=== PATIENT | female | born 2000 | race Caucasian/White ===

== ENCOUNTER 2020-07-09 23:19 | Emergency (ER) | payer SELFPAY ==
[2020-07-09 23:25] VITALS: BP 144/89; PULSE 112; RESP 16; TEMP 36.6; O2SAT 97; BMI 25.3
--- NOTE | 2020-07-09 23:26 | W.ED.SKABFB ---
HPI - Skin/Abscess/Foreign Bdy General: Chief complaint: Skin/Abscess/Foreign Body Stated complaint: rash Time Seen by Provider: 07/09/20 23:20 Source: patient Mode of arrival: ambulatory Limitations: no limitations History of Present Illness: HPI narrative: Patient is a 20-year-old female presents to ED today with complaint of poison fabiola rash last 2 to 3 days. Patient tells me she has had similar rashes several times previously. She reports known exposure to poison fabiola. She states usually she will get IM steroids which seems to help her symptoms. She has no other complaints at this time. complaint: rash Onset (ago): day(s) Tetanus up to date: yes Location: generalized Severity: moderate Quality: burning and pruritic Relieving factors: none Exacerbating factors: none Context: other (poison fabiola exposure) Associated symptoms: Reports no associated symptoms; Deny chills or fever(s) Review of Systems Const: Denies: fever(s) or chills ENMT: Denies: throat pain or odynophagia Card: Denies: chest pain Resp: Denies: dyspnea GI: Denies: abdominal pain Musc: Denies: neck pain, back pain, extremity pain, extremity swelling, joint pain or joint swelling Skin/Breast: Reports: rash Neuro: Denies: headache(s), numbness in extremities, weakness in extremities or sensory changes Physical Exam Const: COMMON NORMALS: no acute distress, average body habitus, patient oriented x3, no limitations, healthy appearing, alert and well nourished Neuro: COMMON NORMALS: patient oriented x3 SENSORIUM/ORIENTATION: Yes alert Skin: OTHER: pt has extensive erythematous edematous clusters throughout arms, torso, face, legs some of which with vesicular/weeping formations and linear streaks consistent with a plant dermatitis Course Vital Signs: Vital signs: Vital Signs Temperature 97.8 F 07/09/20 23:25 Pulse Rate 112 H 07/09/20 23:25 Respiratory Rate 16 07/09/20 23:25 Blood Pressure 144/89 07/09/20 23:25 Pulse Oximetry 97 07/09/20 23:25 Discharge Plan Discharge Patient Disposition: Home Clinical Impression: Irritant contact dermatitis due to plant Condition: Stable Discharge Orders: Discharge Order (Routine); Ordered 07/09/20 Ordered By: Radha Balderrama Patient Instructions: Poison Fabiola (ED), Poison [place], [place], and [place] - Adult Coding Level of Care Code ED Python Engineer for Candice Alvarez
[2020-07-09] MEDS: hydrocortisone 100 mg/2 mL SDV 75 MG IM (23:50)
[2020-07-09] MEDS: triamcinolone 40 mg/mL SDV IM (23:51)
== END 2020-07-09 23:55 | disposition home or self-care (01) ==
PROVIDERS: Emergency Provider Physician Assistant
DX: L24.7 Irritant contact dermatitis due to plants, except food (principal)
CPT/HCPCS: 12345; 96372; 99281; 99283; J1720; J3301

== ENCOUNTER 2023-07-03 17:33 | Emergency (ER) | payer OTHER, MEDICAID, SELFPAY ==
[2023-07-03 17:38] VITALS: BP 160/104; PULSE 105; RESP 16; TEMP 36.4; O2SAT 96; BMI 28.3
[2023-07-03 18:27] VITALS: BP 146/101; PULSE 93; RESP 16; O2SAT 96
--- NOTE | 2023-07-03 18:31 | W.ED.DENTAL ---
HPI - Dental/Oral General: Chief complaint: Dental/Oral Stated complaint: recent tooth pulled, severe pain right side Time Seen by Provider: 07/03/23 18:21 History of Present Illness: 23-year-old female comes in with right upper jaw pain. Patient had a dental extraction about 2 weeks ago and over the last 2 days she has had increased pain and tenderness to the right upper jaw. Patient appears nontoxic. Patient appears in moderate pain. Patient take 1 amoxicillin at home yesterday when the pain started. Associated symptoms: Reports ear or mastoid pain; Denies fever(s) Review of Systems Const: Denies: fever(s) ENMT: Reports: dental pain and ear or mastoid pain GI: Denies: nausea or vomiting Musc: Denies: neck pain or back pain Physical Exam Const: COMMON NORMALS: alert HENMT: COMMON NORMALS: atraumatic, TM's normal bilaterally and Normal external nose present HEAD & SCALP: atraumatic NOSE: Normal external nose present TYMPANIC MEMBRANE: TM's normal bilaterally MOUTH: Normal oral and palatal mucosa present TEETH & GINGIVA IMAGES: 1. Redness and swelling THROAT: posterior oropharynx normal Neck/C-Spine: COMMON NORMALS: full ROM Resp: COMMON NORMALS: normal respiratory effort and clear to auscultation bilaterally AUSCULTATION: clear to auscultation bilaterally Cardio: COMMON NORMALS: regular rate and regular rhythm RATE: regular rate RHYTHM: regular rhythm Extremity: COMMON NORMALS: normal to inspection Neuro: SENSORIUM/ORIENTATION: Yes alert Skin: COMMON NORMALS: turgor normal GENERAL SKIN EXAM: turgor normal Course Vital Signs: Vital signs: Vital Signs Temperature 97.5 F L 07/03/23 17:38 Pulse Rate 93 07/03/23 18:27 Respiratory Rate 16 07/03/23 18:27 Blood Pressure 146/101 07/03/23 18:27 Pulse Oximetry 96 07/03/23 18:27 Oxygen Delivery Me thod Room Air 07/03/23 18:27 MDM - Dental/Oral Medical Decision Making Patient comes in today with complaints of tenderness and pain to the right upper jaw. On exam patient has some erythema and swelling to the gingiva of the second molar. Third molar is missing. Well-healed dental extraction is noted. Differential diagnosis includes but not limited to periodontal disease, dry socket, dental abscess, otitis media. No signs of severe illness or injury is noted. Patient appears to have a dental abscess. Recommend antibiotics and follow-up with dentist for further evaluation. Patient was also given some ibuprofen and hydrocodone for pain relief. Patient stated understanding of care plan and need for follow-up or return to ER as needed. Discharge Plan Discharge Patient Disposition: Home Clinical Impression: Dental abscess Condition: Stable Prescriptions: New amoxicillin-pot clavulanate 875-125 mg tablet 1 tab PO BID Qty: 14 0RF hydrocodone-acetaminophen 5-325 mg tablet 1 tab PO Q8H PRN (Reason: pain (scale score 7-10)) Qty: 6 0RF ibuprofen 600 mg tablet 600 mg PO Q6H PRN (Reason: fever or pain) Qty: 20 0RF Discharge Orders: Discharge ED (Routine); Ordered 07/03/23 Ordered By: Galindo Talley Discharge Diet: Usual diet Discharge Activity: Increase activity as tolerated Patient Instructions: Dental Abscess (ED), Opioid Safety Activity Restrictions/Additional Instructions: Take antibiotic as directed. Drink plenty of water with medication. Use acetaminophen and/or ibuprofen to control pain. Use hydrocodone for severe pain. Use ice packs for further pain relief. Follow-up with dentist for further evaluation and treatment as needed. Coding Level of Care Code ED Supervisor Air Conditioning Installer for Candice Alvarez
[2023-07-03] MEDS: HYDROcodone-acetaminophen 7.5-325 mg Tablet 1 TAB PO (18:33)
[2023-07-03] MEDS: amoxicillin-clav 875-125 mg Tablet 1 TAB PO (18:33)
== END 2023-07-03 18:36 | disposition home or self-care (01) ==
PROVIDERS: Emergency Provider Nurse Practitioner Family
DX: K04.7 Periapical abscess without sinus (principal)
CPT/HCPCS: 99283

== ENCOUNTER 2023-09-27 00:02 | Emergency (ER) | payer MEDICAID, SELFPAY ==
[2023-09-27 00:03] VITALS: BP 160/120; PULSE 95; RESP 16; TEMP 36.4; O2SAT 100; BMI 27.7
[2023-09-27 00:54] VITALS: RESP 16; O2SAT 97
[2023-09-27 01:02] LABS: Basophils # 0.1 10^3/uL (0.0-0.1); Basophils % 0.8 %; Eosinophils # 0.9 10^3/uL (0.0-0.8); Eosinophils % 7.2 %; Hematocrit 44.1 % (36-47); Lymphocytes # 2.1 10^3/uL (0.8-4.8); Lymphocytes % 16.7 %; Mean Corpuscular HGB Conc 32.7 g/dL (30-55); Mean Corpuscular Hemoglobin 30.7 pg (27-33); Mean Platelet Volume 9.8 fL (7.4-10.4); Monocytes # 0.7 10^3/uL (0.2-0.9); Monocytes % 5.8 %; Neutrophils # 8.71 10^3/uL (1.8-7.7); Neutrophils % 69.2 %; Nucleated Red Blood Cells % 0 %; Platelet Count 260 10^3/cmm (157-399); Red Blood Count 4.69 10^6/uL (3.85-5.65); Red Cell Distribution Width 12.5 % (12.1-15.1); White Blood Count 12.58 10^3/uL (3.29-11.43)
[2023-09-27 01:21] LABS: HCG, Serum Qual Negative (Negative)
[2023-09-27 01:23] LABS: Add Urine Culture? No; Add Urine Microscopic? YES; Amorphous Sediment Urine 3+ /hpf; Bacteria Urine TRACE /hpf; Bilirubin Urine Neg (Negative); Blood Urine Neg (Negative); Glucose Urine UA Norm (Normal); Ketones Urine 1+ (Negative); Leukocyte Esterase Urine Trace (Negative); Nitrate Urine Negative (Negative); Protein Urine Neg (Negative); Specific Gravity, Urine 1.015 (1.005-1.030); Urine Appearance Hazy (CLEAR); Urine Color Yellow (Yellow); Urobilinogen Urine 1 mg/dL (Negative); WBC Urine 0-4 /hpf (0-5); pH Urine 7 (5-7)
[2023-09-27 01:30] LABS: Alanine Aminotransferase 22 U/L (0-33); Albumin Level 5.1 g/dL (3.5-5.2); Alkaline Phosphatase 65 U/L (35-105); Aspartate Amino Transferase 15 U/L (0-32); Blood Urea Nitrogen 13 mg/dL (6-20); Calcium 10.2 mg/dL (8.5-10.5); Carbon Dioxide 27 mmol/L (22-29); Chloride 101 mmol/L (98-107); Globulin 2.7 g/dL (1.3-4.6); Glomerular Filtration Rate 123.9 mL/min (90-130); Glucose 73 mg/dL (65-115); Lipase 23 U/L (13-60); Osmolality Calculated 285 mOsm/kg (285-295); Sodium 138 mmol/L (136-145); Total Bilirubin 0.2 mg/dL (0.15-1.2); Total Protein 7.8 g/dL (6.6-8.7)
[2023-09-27] MEDS: lidocaine 2% viscous 15 ML, aluminum-mag hydrox-simethicon 30 ML, sucralfate oral liq 1 GM PO (01:39)
[2023-09-27 01:49] LABS: Anion Gap 13.9 (5-19); Potassium 3.9 mmol/L (3.5-5.1)
--- NOTE | 2023-09-27 01:53 | ED_ITS ---
HPI - Abdominal Pain General: Chief Complaint: Abdominal Pain Stated Complaint: ABD Pain Time Seen by Provider: 09/27/23 01:26 Source: patient History of Present Illness: Healthy 23-year-old female. She presents with epigastric pain for the last 2 to 3 days. No vomiting. No fever. Minimal nausea. Pain has been consistent, but is now improved to some degree this evening. No blood in the stool. No history of abdominal surgery. MD elicited complaint: abdominal pain Associated Symptoms: Denies chills, diarrhea, fever(s), hematochezia, nausea and vomiting Related Data: Date of Last Menstrual Period: 08/16/23 Review of Systems Const: Denies: fever(s), chills or body aches Eyes: Denies: change in vision Card: Denies: chest pain or palpitations Resp: Denies: dyspnea, productive cough, non-productive cough or wheezing GI: Reports: abdominal pain; Denies: nausea, vomiting, diarrhea or hematochezia : Denies: difficulty voiding Skin/Breast: Denies: rash Neuro: Denies: headache(s), weakness in extremities, dizziness or confusion [facility] ED Female Reproductive History: Date of last menstrual period: 08/16/23 Physical Exam Const: COMMON NORMALS: no acute distress GENERAL APPEARANCE: cooperative; not ill appearing and not frail appearing HENMT: COMMON NORMALS: normocephalic, atraumatic and Normal external nose present HEAD & SCALP: normocephalic and atraumatic FACE & SINUS: normal facial exam and face symmetric NOSE: Normal external nose present Eye: COMMON NORMALS: Equal, round and reactive pupils present and EOMs intact bilaterally PUPIL: Yes Equal, round and reactive pupils present Neck/C-Spine: GENERAL: Yes trachea midline Chest: CHEST: Yes Symmetrical chest wall rise Resp: COMMON NORMALS: normal respiratory effort, No retractions, No use of accessory muscles and clear to auscultation bilaterally AUSCULTATION: clear to auscultation bilaterally Cardio: COMMON NORMALS: regular rate and regular rhythm RATE: regular rate RHYTHM: regular rhythm GI: COMMON NORMALS: Normal to inspection, nondistended, normoactive bowel sounds present and Soft to palpation PALPATION: Yes Soft to palpation, No Tenderness to palpation present (GI) and No Guarding due to palpation present (GI) Extremity: COMMON NORMALS: no pedal edema Neuro: MANUEL COMA SCALE: document GCS findings [place] coma scale eye opening: Spontaneous Manuel coma scale verbal response: Orientated Manuel coma scale motor response: Obey commands [place] coma scale total score: 15 SENSORY EXAM: Yes extremities (intact) Psych: COMMON NORMALS: speech normal SPEECH: Yes normal speech Skin: COMMON NORMALS: no rashes or lesions noted GENERAL SKIN EXAM: no roldan hes or lesions noted Course Vital Signs: Vital signs: Vital Signs Temperature 97.5 F L 09/27/23 00:03 Pulse Rate 95 09/27/23 00:03 Respiratory Rate 16 09/27/23 00:54 Blood Pressure 160/120 09/27/23 00:03 Pulse Oximetry 97 09/27/23 00:54 Oxygen Delivery Me thod Room Air 09/27/23 00:54 MDM - Abdominal Pain Medical Decision Making The patient is essentially nontender now on exam. Blood pressure is significantly elevated. Other vitals are normal. White blood cell count is 12.6, with normal differential. Other laboratory including BMP, liver enzymes, CRP and lipase are all normal. Urinalysis is slightly contaminated, otherwise not clinically significant. Patient is given a GI cocktail without a significant difference, but pain had resolved essentially prior to administration. Suspect this is a gastritis given the distribution of her pain. Medical treatment, outpatient follow-up. Evidently, the patient may have eloped from the ER, with IV intact in her forearm. We are attempting to find the patient to administer correct discharge instructions, and discontinue her intravenous catheter. Lab Data 09/27/23 00:48 09/27/23 00:48 Labs/Radiology: Laboratory Results WBC 12.58 10^3/uL (3.29-11.43) H 09/27/23 00:48 RBC 4.69 10^6/uL (3.85-5.65) 09/27/23 00:48 Hgb 14.40 g/dL (11.27-16.99) 09/27/23 00:48 Hct 44.1 % (36-47) 09/27/23 00:48 MCV 94.0 fl (85-98) 09/27/23 00:48 MCH 30.7 pg (27-33) 09/27/23 00:48 MCHC 32.7 g/dL (30-55) 09/27/23 00:48 RDW 12.5 % (12.1-15.1) 09/27/23 00:48 Plt Count 260 10^3/cmm (157-399) 09/27/23 00:48 MPV 9.8 fL (7.4-10.4) 09/27/23 00:48 Neut % (Auto) 69.2 % 09/27/23 00:48 Lymph % (Auto) 16.7 % 09/27/23 00:48 [place] % (Auto) 5.8 % 09/27/23 00:48 Eos % (Auto) 7.2 % 09/27/23 00:48 Baso % (Auto) 0.8 % 09/27/23 00:48 Neut # (Auto) 8.71 10^3/uL (1.8-7.7) H 09/27/23 00:48 Lymph # (Auto) 2.1 10^3/uL (0.8-4.8) 09/27/23 00:48 [place] # (Auto) 0.7 10^3/uL (0.2-0.9) 09/27/23 00:48 Eos # (Auto) 0.9 10^3/uL (0.0-0.8) H 09/27/23 00:48 Baso # (Auto) 0.1 10^3/uL (0.0-0.1) 09/27/23 00:48 Nucleated RBC % (auto) 0 % 09/27/23 00:48 Nucleated RBCs # 0.0 /100WBC 09/27/23 00:48 Sodium 138 mmol/L (136-145) 09/27/23 00:48 Potassium 3.9 mmol/L (3.5-5.1) 09/27/23 00:48 Chloride 101 mmol/L (98-107) 09/27/23 00:48 Carbon Dioxide 27 mmol/L (22-29) 09/27/23 00:48 Anion Gap 13.9 (5-19) 09/27/23 00:48 BUN 13 mg/dL (6-20) 09/27/23 00:48 Creatinine 0.6 mg/dL (0.5-0.9) 09/27/23 00:48 GFR Calculation 123.9 mL/min (90-130) 09/27/23 00:48 Glucose 73 mg/dL (65-115) 09/27/23 00:48 Calculated Osmolality 285 mOsm/kg (285-295) 09/27/23 00:48 Calcium 10.2 mg/dL (8.5-10.5) 09/27/23 00:48 Total Bilirubin 0.2 mg/dL (0.15-1.2) 09/27/23 00:48 AST 15 U/L (0-32) 09/27/23 00:48 ALT 22 U/L (0-33) 09/27/23 00:48 Alkaline Phosphatase 65 U/L (35-105) 09/27/23 00:48 C-Reactive Protein 3.0 mg/L (0.0-4.9) 09/27/23 00:48 Total Protein 7.8 g/dL (6.6-8.7) 09/27/23 00:48 Albumin 5.1 g/dL (3.5-5.2) 09/27/23 00:48 Globulin 2.7 g/dL (1.3-4.6) 09/27/23 00:48 Lipase 23 U/L (13-60) 09/27/23 00:48 HCG, Qual Negative (Negative) 09/27/23 00:48 Urine Color Yellow (Yellow) 09/27/23 00:47 Urine Appearance Hazy (CLEAR) A 09/27/23 00:47 Urine pH 7 (5-7) 09/27/23 00:47 Ur Specific [place] 1.015 (1.005-1.030) 09/27/23 00:47 Urine Protein Neg (Negative) 09/27/23 00:47 Urine Glucose (UA) Norm (Normal) 09/27/23 00:47 Urine Ketones 1+ (Negative) H 09/27/23 00:47 Urine Blood Neg (Negative) 09/27/23 00:47 Urine Nitrate Negative (Negative) 09/27/23 00:47 Urine Bilirubin Neg (Negative) 09/27/23 00:47 Urine Urobilinogen 1 mg/dL (Negative) H 09/27/23 00:47 Ur Leukocyte Esterase Trace (Negative) H 09/27/23 00:47 Urine RBC None /hpf (0-2) 09/27/23 00:47 Urine WBC 0-4 /hpf (0-5) H 09/27/23 00:47 Ur Squamous Epith Cells 5-10 /hpf (0-5) H 09/27/23 00:47 Amorphous Sediment 3+ /hpf 09/27/23 00:47 Urine Bacteria Trace /hpf (NONE) 09/27/23 00:47 No radiology studies performed this visit Discharge Plan Discharge Patient Disposition: Home Clinical Impression: Gastritis Condition: Stable Prescriptions: New Prevacid 30 mg capsule,delayed release(DR/EC) 30 mg PO DAILY Qty: 30 0RF No Action amoxicillin-pot clavulanate 875-125 mg tablet 1 tab PO BID Qty: 14 0RF hydrocodone-acetaminophen 5-325 mg tablet 1 tab PO Q8H PRN (Reason: pain (scale score 7-10)) Qty: 6 0RF ibuprofen 600 mg tablet 600 mg PO Q6H PRN (Reason: fever or pain) Qty: 20 0RF Discharge Orders: Discharge ED (Routine); Ordered 09/27/23 Ordered By: Iraj Craig Patient Instructions: Gastritis (ED) Activity Restrictions/Additional Instructions: Your pain is most likely gastritis, which is an inflammation of the lining of the stomach. Medication prescribed will help this over time. Most of the time, a 3 to 4-week trial is required. Return for fever, worsening pain despite treatment, vomiting, blood in your stool, other concerning symptoms. See your doctor this week. Call for a follow-up appointment Coding Level of Care Code ED Adventure Guide for Candice Alvarez
--- NOTE | 2023-09-27 02:37 | PC.NURSE ---
HCSO reports that they were unable to make contact with the pt.
== END 2023-09-27 02:12 | disposition home or self-care (01) ==
PROVIDERS: Emergency Provider Emergency Medicine
DX: K29.70 Gastritis, unspecified, without bleeding (principal)
CPT/HCPCS: 80053; 81001; 83690; 84703; 85025; 86140; 99283

== ENCOUNTER → 2023-11-03 09:31 | Outpatient (BNVA) | payer MEDICAID, SELFPAY | PROVIDERS: Visit Provider Nurse Practitioner Family | DX: J06.9 Acute upper respiratory infection, unspecified (principal) | CPT/HCPCS: 87426 ==

== ENCOUNTER 2024-08-30 17:55 | Emergency (ER) | payer MEDICAID, SELFPAY ==
[2024-08-30 18:10] VITALS: BP 131/87; PULSE 97; RESP 16; TEMP 36.8; O2SAT 97
--- NOTE | 2024-08-30 18:34 | ED_ITS ---
HPI - Wound/Laceration General: Chief Complaint: Wound/Laceration Stated Complaint: left leg would Time Seen by Provider: 08/30/24 18:29 History of Present Illness: Patient presents to the ER with complaints of a large red area on her left calf. Is been going on for several days. She was just recently treated for a similar episode on her right calf. They thought it was a spider bite it is totally resolved. The new area is red painful swollen and warm no or streaking. Related Data Previous Rx's Medication Instructions Recorded triamcinolone acetonide 0.1 % 1 applic topical BID PRN itching 08/22/24 topical ointment #30 grams cephalexin 500 mg capsule 500 mg PO Q6H 7 days #28 caps 08/30/24 Allergies Allergy/AdvReac Type Severity Reaction Status Date / Time No Known Allergies Allergy Verified 08/30/24 18:13 Review of Systems General: Reports: 10 or more systems reviewed and unremarkable except in HPI and below PFSH ED PFSH: Medical History Psychiatric care Social History Smoking and tobacco/nicotine status: current every day tobacco/nicotine user Physical Exam Const: COMMON NORMALS: no acute distress, average body habitus, patient oriented x3, no limitations, healthy appearing, alert and well nourished HENMT: COMMON NORMALS: normocephalic, atraumatic, hearing grossly normal bilaterally, external ears normal, Normal external nose present and moist oral mucous membranes HEAD & SCALP: normocephalic and atraumatic NOSE: Normal external nose present EXTERNAL EAR: Yes external ears normal Neck/C-Spine: COMMON NORMALS: no JVD Chest: COMMONS NORMALS: normal inspection of the chest and normal palpation of entire chest wall Resp: COMMON NORMALS: normal respiratory effort, No retractions, No use of accessory muscles and clear to auscultation bilaterally AUSCULTATION: clear to auscultation bilaterally Cardio: COMMON NORMALS: no JVD, regular rate, regular rhythm, S1 normal heart sound present, S2 normal heart sound present, No gallops present (Cardio), No clicks present (Cardio), No murmurs present (Cardio) and No rub (Cardio) RATE: regular rate RHYTHM: regular rhythm HEART SOUNDS: S1 normal heart sound present and S2 normal heart sound present GI: COMMON NORMALS: Normal to inspection, nondistended, normoactive bowel sounds present, Soft to palpation, non-tender, No hepatosplenomegaly present and no masses PALPATION: Yes Soft to palpation and Yes No hepatosplenomegaly present Extremity: NARRATIVE EXTREMITY EXAM: Approximately 3 to 4 cm red erythematous area on the left medial calf no obvious fluctuance tender to palpate no obvious streaking Neuro: COMMON NORMALS: patient oriented x3 SENSORIUM/ORIENTATION: Yes alert Course Vital Signs: Vital signs: Vital Signs Temperature 98.3 F 08/30/24 18:10 Pulse Rate 97 08/30/24 18:10 Respiratory Rate 16 08/30/24 18:10 Blood Pressure 131/87 08/30/24 18:10 Pulse Oximetry 97 08/30/24 18:10 Oxygen Delivery Me thod Room Air 08/30/24 18:10 MDM - Wound/Laceration Medical Decision Making Appears patient has cellulitis, patient was given Keflex here in ER and will be discharged home with a prescription of Keflex. Medical Records I reviewed the patient's medical records. Lab Data I reviewed the patient's lab results. No radiology studies performed this visit Discharge Plan Discharge Patient Disposition: Home Clinical Impression: Cellulitis Qualifiers: Site of cellulitis: extremity Site of cellulitis of extremity: lower extremity Laterality: left Qualified Code(s): L03.116 - Cellulitis of left lower limb Condition: Stable Prescriptions: New cephalexin 500 mg capsule 500 mg PO Q6H 7 Days Qty: 28 0RF Discontinued sulfamethoxazole-trimethoprim [Bactrim DS] 800-160 mg tablet 1 tab PO BID 7 Days Qty: 14 0RF No Action triamcinolone acetonide 0.1 % ointment 1 applic topical BID PRN (Reason: itching) Qty: 30 0RF Discharge Orders: Discharge ED (Routine); Ordered 08/30/24 Ordered By: Kenton Joshi Patient Instructions: Cellulitis (ED) Activity Restrictions/Additional Instructions: Antibiotics have been called in to your pharmacy. You have been given your first dose here in the ER. Please take them all as directed. Please follow-up with your family practice doctor in the next 7 days as needed for further evaluation and treatment. Coding Level of Care Code ED Automotive Service Writer for Candice Alvarez
[2024-08-30] MEDS: cephALEXin 500 mg Capsule PO (18:36)
[2024-08-30 18:48] VITALS: BP 130/82; PULSE 95; O2SAT 97
== END 2024-08-30 18:49 | disposition home or self-care (01) ==
PROVIDERS: Emergency Provider Emergency Medicine
DX: L03.116 Cellulitis of left lower limb (principal); Z72.0 Tobacco use
CPT/HCPCS: 99283